=== PATIENT | male | born 1975 | race Hispanic/Latino ===

== ENCOUNTER 2019-04-16 15:14 | Emergency (ER) | payer OTHER, SELFPAY ==
[2019-04-16 16:03] LABS: Absolute Lymphocytes (CBC) 0.9 K/uL (0.7-4.9); Absolute Monocytes 0.3 K/uL (0.1-1.3); Absolute Neutrophil 6.8 K/uL (1.8-8.0); Basophils % 0.3 % (0-1.3); Eosinophils % 0.1 % (0-4.4); Hematocrit 43.7 % (39.6-49.0); Lymphocytes % 11.4 % (15.3-44.8); MPV 8.4 fL (7.6-11.3); Monocytes % 3.2 % (3.3-12.3); Protime INR 1.04; RBC Red Blood Cell Count 4.88 M/uL (4.33-5.43)
[2019-04-16 16:15] LABS: ALT/SGPT 39 U/L (12-78); AST/SGOT 22 U/L (15-37); Albumin 4.5 g/dL (3.4-5.0); Alkaline Phosphatase 75 U/L (45-117); BUN Blood Urea Nitrogen 17 mg/dL (7-18); Bicarbonate 25 mmol/L (21-32); Bilirubin Total 1.2 mg/dL (0.2-1.0); Glucose Level 123 mg/dL (74-106); Protein, Total 8.4 g/dL (6.4-8.2); Sodium Level 139 mmol/L (136-145); Troponin (Emerg Dept Use Only) < 0.02 ng/mL (0.0-0.045)
--- NOTE | 2019-04-16 16:23 | RAD REPORT ---
EXAM DESCRIPTION: CT - Head Brain Wo Cont - 04/16/2019 3:53 pm CLINICAL HISTORY: Headache COMPARISON: None. TECHNIQUE: Computed axial tomography of the head was obtained. IV contrast was not requested. All CT scans are performed using dose optimization technique as appropriate and may include automated exposure control or mA/KV adjustment according to patient size. FINDINGS: An intracranial bleed is not seen . The ventricles are normal in caliber. No extra-axial fluid collection is noted. 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 Infundibulum is distorted Fluid within the sinuses/ mastoids is not seen. 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 MRI pituitary gland recommended.
[2019-04-16] MEDS ORDERED: METOCLOPRAMIDE 10 MG/2mL INJ ONE (16:59)
[2019-04-16] MEDS ORDERED: NA CHLORIDE 0.9% 1,000 ML ONE (16:59)
[2019-04-16 17:05] LABS: Creatine Phosphokinase 196 U/L (39-308)
--- NOTE | 2019-04-16 17:44 | EDPHYS ---
Physician Documentation [facility] Name: Kd Rader Age: 43 yrs Sex: Male : 1975 Arrival Date: 04/16/2019 Time: 15:18 Bed 8 Private MD: ED Physician Nakul Kate HPI: 04/16 15:41 This 43 yrs old Male presents to ER via Ambulatory with complaints of jmm Headache, Vomiting, Numbness Of Hand. 15:41 The patient complains of pain to the forehead. Onset: The symptoms/episode jmm began/occurred this morning, at 09:00. Associated signs and symptoms: Pertinent positives: Photophobia vomiting. This is a 43 year old male with no chronic medical conditions that presents to the ED with complaints of a frontal headache beginning at approx 0900 this morning. Patient states he vomited and developed numbness to his left finger tips. patient denies weakness. Patient states having transient blurred vision during the episodes of vomiting. Patient states his headache has decreased in severity. Patient states the previous day he had worked in high heat for an extended period of time. . Historical: - Allergies: 15:25 No Known Allergies; sg - Home Meds: 15:25 None [Active]; sg - PMHx: 15:25 None; sg - PSHx: 15:25 None; sg - Immunization history:: Adult Immunizations not up to date. - Social history:: Smoking status: Patient/guardian denies using tobacco. - Ebola Screening: : Patient negative for fever greater than or equal to 101.5 degrees Fahrenheit, and additional compatible Ebola Virus Disease symptoms Patient denies exposure to infectious person Patient denies travel to an Ebola-affected area in the 21 days before illness onset No symptoms or risks identified at this time. ROS: 15:41 Constitutional: Negative for fever, chills, and weight loss, Cardiovascular: Negative jmm for chest pain, palpitations, and edema, Respiratory: Negative for shortness of breath, cough, wheezing, and pleuritic chest pain. 15:41 Abdomen/GI: Positive for vomiting. 15:41 Neuro: Positive for headache. 15:41 All other systems are negative. Exam: 15:41 Constitutional: This is a well developed, well nourished patient who is awake, alert, jmm and in no acute distress. Head/Face: atraumatic. Eyes: EOMI, no conjunctival erythema appreciated ENT: Moist Mucus Membranes Neck: Trachea midline, Supple Chest/axilla: Normal chest wall appearance and motion. Cardiovascular: Regular rate and rhythm. No edema appreciated Respiratory: Normal respirations, no respiratory distress appreciated Abdomen/GI: Non distended, soft Skin: General appearance color normal MS/ Extremity: Moves all extremities, no obvious deformities appreciated, no edema noted to the lower extremities 15:41 Neuro: Orientation: is normal, Mentation: is normal, Memory: is normal, Cerebellar function: 15:41 Psych: Behavior/mood is pleasant, cooperative. Vital Signs: 15:24 BP 152 / 99; Pulse 78; Resp 18; Temp 97.6; Pulse Ox 100% on R/A; Pain 10/10; sg 16:14 BP 145 / 99; Pulse 65; Resp 18; Pulse Ox 96% ; sv 17:02 BP 148 / 95; Pulse 66; Resp 16; Pulse Ox 99% ; sv 17:49 BP 146 / 91; Pulse 78; Resp 16; Pulse Ox 99% ; sv NIH Stroke Scale Scores: 16:07 NIHSS Score: 1 sv [place] Coma Score: 15:40 Eye Response: spontaneous(4). Verbal Response: oriented(5). Motor Response: obeys sv commands(6). Total: 15. MDM: 15:41 Patient medically screened. [facility] 17:42 Data reviewed: vital signs, nurses notes. Counseling: I had a detailed discussion with [facility] the patient and/or guardian regarding: the historical points, exam findings, and any diagnostic results supporting the discharge/admit diagnosis, the need for outpatient follow up, to return to the emergency department if symptoms worsen or persist or if there are any questions or concerns that arise at home. 17:42 ED course: CT imaging is negative within 8 hours of onset. Patient headache relieved in [facility] the ED. I do not currently suspect SAH. Patient is afebrile and non toxic in appearance, neck is supple. I do not suspect meningitis. Due to different character of headaches and findings of pituitary mass, patient is advised to follow up with neurology. Family is otherwise given strict return precautions. Patient and family understood and agrees with the plan of care. . 04/16 15:41 Order name: CBC with Diff; Complete Time: 16:08 [facility] 04/16 15:41 Order name: CMP; Complete Time: 17:18 [facility] 04/16 15:41 Order name: Troponin (emerg Dept Use Only); Complete Time: 17:18 [facility] 04/16 15:41 Order name: PT-INR; Complete Time: 16:08 [facility] 04/16 15:47 Order name: Glucose, Ancillary Testing; Complete Time: 15:52 EDMS 04/16 16:49 Order name: Add On-Lab [facility] 04/16 15:41 Order name: CT Head Brain wo Cont; Complete Time: 16:25 [facility] 04/16 15:41 Order name: Saline Lock; Complete Time: 15:55 [facility] 04/16 15:45 Order name: EKG - Nurse/Tech; Complete Time: 16:11 [facility] 04/16 15:55 Order name: EKG; Complete Time: 15:55 sv 04/16 16:53 Order name: Creatine Phosphokinase; Complete Time: 17:18 EDMS Administered Medications: 16:50 Drug: NS 0.9% 1000 ml Route: IV; Rate: 1000 ml; Site: right antecubital; sv 17:50 Follow up: Response: No adverse reaction; IV Status: Completed infusion; IV Intake: sv 1000ml 16:50 Drug: Reglan 10 mg Route: IVP; Site: right antecubital; sv 17:45 Follow up: Response: No adverse reaction; Marked relief of symptoms sv Point of Care Testing: Blood Glucose: 15:44 Blood Glucose: 124 mg/dL; sv Ranges: Critical Glucose Levels:Adult <50 mg/dl or >400 mg/dl <40 mg/dl or >180 mg/dl Disposition: 04/16/19 17:43 Discharged to Home. Impression: Headache. - Condition is Stable. - Discharge Instructions: General Headache Without Cause. - Medication Reconciliation Form, Thank You Letter, Antibiotic Education, Prescription Opioid Use form. - Follow up: Sean Lopez MD; When: 2 - 3 days; Reason: Recheck today's complaints, Continuance of care, Re-evaluation by your physician. NIH Stroke Scale - NIH Stroke Score Date: 04/16/2019 Time: 16:07 Total Score = 1 1a. Level of Consciousness (LOC) - 0(Alert) 1b. Level of Consciousness (LOC) (Year \T\ Age) - 0(Both) 1c. LOC Commands (Open \T\ Closes Eyes/Hand Launderer) - 0(Both) 2. Best Gaze (Lateral Gaze Paresis) - 0(Normal) 3. Visual Field Loss - 0(No visual loss) 4. Facial Palsy - 0(Normal) 5a. Left Arm: Motor (10-second hold) - 0(No drift) 5b. Right Arm: Motor (10-second hold) - 0(No drift) 6a. Left Leg: Motor (5-second hold - always test supine) - 0(No drift) 6b. Right Leg: Motor (5-second hold - always test supine) - 0(No drift) 7. Limb Ataxia (finger/nose \T\ heel/thomas - test with eyes open) - 0(Absent) 8. Sensory Loss (pinprick arms/legs/face) - 1(Mild to moderate loss) 9. Best Language: Aphasia (description/naming/reading) - 0(No aphasia) 10. Dysarthria (speech clarity - read or repeat words) - 0(Normal) 11. Extinction and Inattention (visual/tactile/auditory/spatial/personal) - 0(No abnormality) Initials: sv Signatures: Dispatcher [employer] EDSallie Prater RN RN sv Gay, Steven, RN RN sg Mickail, Joel, PA PA jmm Corrections: (The following items were deleted from the chart) 18:00 17:43 04/16/2019 17:43 Discharged to Home. Impression: Headache. Condition is sv Stable. Forms are Medication Reconciliation Form, Thank You Letter, Antibiotic Education, Prescription Opioid Use. Follow up: Sean Lopez; When: 2 - 3 days; Reason: Recheck today's complaints, Continuance of care, Re-evaluation by your physician. krystina 18:19 15:41 This is a 43 year old male with no chronic medical conditions that krystina presents to the ED with complaints of a frontal headache beginning at approx 0900 this morning. Patient states he vomited and developed numbness to his left finger tips. patient denies weakness. Patient states having transient blurred vision during the episodes of vomiting. Patient states his headache has decreased in severity. . krystina
--- NOTE | 2019-04-16 17:44 | ER ---
Nurse's Notes [facility] Name: Kd Rader Age: 43 yrs Sex: Male : 1975 Arrival Date: 04/16/2019 Time: 15:18 Bed 8 Private MD: Diagnosis: Headache Presentation: 04/16 15:25 Presenting complaint: Patient states: Headache with N/V that started this morning sg around 0800 I think, Reports having right hand numbness that started at 1440 today. Transition of care: patient was not received from another setting of care. Onset of symptoms was April 16, 2019. Risk Assessment: Do you want to hurt yourself or someone else? Patient reports no desire to harm self or others. Initial Sepsis Screen: Does the patient meet any 2 criteria? No. Patient's initial sepsis screen is negative. Does the patient have a suspected source of infection? No. Patient's initial sepsis screen is negative. Care prior to arrival: None. 15:25 Method Of Arrival: Ambulatory sg 15:25 Acuity: EMI 3 sg Triage Assessment: 15:27 General: Appears in no apparent distress. uncomfortable, well groomed, well developed, sg well nourished, Behavior is calm, cooperative, appropriate for age. Neuro: Level of Consciousness is awake, alert, obeys commands, Oriented to person, place, time, situation, Demand Equipment Repairer are equal bilaterally Moves all extremities. Full function Speech is normal, Facial symmetry appears normal, Pupils are PERRLA, Numbness in right hand Reports headache. 15:40 Headache History: The patient has had previous headaches and this one is different than sv previous episodes, and this one is more severe than previous episodes. Historical: - Allergies: 15:25 No Known Allergies; sg - Home Meds: 15:25 None [Active]; sg - PMHx: 15:25 None; sg - PSHx: 15:25 None; sg - Immunization history:: Adult Immunizations not up to date. - Social history:: Smoking status: Patient/guardian denies using tobacco. - Ebola Screening: : Patient negative for fever greater than or equal to 101.5 degrees Fahrenheit, and additional compatible Ebola Virus Disease symptoms Patient denies exposure to infectious person Patient denies travel to an Ebola-affected area in the 21 days before illness onset No symptoms or risks identified at this time. Screenin:40 Abuse screen: Denies threats or abuse. Denies injuries from another. Nutritional sv screening: No deficits noted. Tuberculosis screening: No symptoms or risk factors identified. Fall Risk None identified. 16:07 VAN Screening: Arm Drift: Patient shows no arm weakness. Patient is VAN negative. sv Visual Disturbance: No visual disturbance noted. Aphasia: No aphasia noted. Neglect: No neglect noted. Assessment: 15:40 General: Appears in no apparent distress. uncomfortable, well groomed, well developed, sv Behavior is calm, cooperative, appropriate for age. Pain: Complains of pain in scalp Pain currently is 8 out of 10 on a pain scale. Pain began 0700. Stated he woke up this morning with no headache and then the headache came on suddenly and painful but now the pain has decreased. It started in the frontal area and now is in the occipital area. Is continuous, Also complains of photophobia. Neuro: Level of Consciousness is awake, alert, obeys commands, Oriented to person, place, time, situation, Moves all extremities. Full function Gait is steady, Speech is normal, Facial symmetry appears normal, Reports headache occipital area, numbness in left hand since 0900 but has resolved. photophobia weakness in right foot and left foot. Cardiovascular: Patient's skin is warm and dry. Pulses are 3+ in right brachial artery and left brachial artery. Respiratory: Airway is patent Respiratory effort is even, unlabored, Respiratory pattern is regular, symmetrical. Derm: Skin is pink, warm \T\ dry. Musculoskeletal: Range of motion: intact in all extremities. 16:51 Reassessment: Patient appears in no apparent distress at this time. Patient and/or sv family updated on plan of care and expected duration. Pain level reassessed. Patient is alert, oriented x 3, equal unlabored respirations, skin warm/dry/pink. Neuro: Reports headache occipital area, numbness in left hand fingertips. 17:58 Reassessment: Patient appears in no apparent distress at this time. Patient and/or sv family updated on plan of care and expected duration. Pain level reassessed. Patient is alert, oriented x 3, equal unlabored respirations, skin warm/dry/pink. Patient denies pain at this time. Patient states feeling better. Patient states symptoms have improved. Vital Signs: 15:24 BP 152 / 99; Pulse 78; Resp 18; Temp 97.6; Pulse Ox 100% on R/A; Pain 10/10; sg 16:14 BP 145 / 99; Pulse 65; Resp 18; Pulse Ox 96% ; sv 17:02 BP 148 / 95; Pulse 66; Resp 16; Pulse Ox 99% ; sv 17:49 BP 146 / 91; Pulse 78; Resp 16; Pulse Ox 99% ; sv Vitals: 16:14 Cardiac Rhythm Assessment Sinus rhythm. sv [place] Coma Score: 15:40 Eye Response: spontaneous(4). Verbal Response: oriented(5). Motor Response: obeys sv commands(6). Total: 15. NIH Stroke Scale Scores: 16:07 NIHSS Score: 1 sv ED Course: 15:18 Patient arrived in ED. tw3 15:26 Triage completed. sg 15:27 Subhash Castro PA is PHCP. [facility] 15:27 Nakul Kate MD is Attending Physician. jmm 15:27 Arm band placed on. sg 15:40 Patient has correct armband on for positive identification. Bed in low position. Call sv light in reach. Adult w/ patient. Pulse ox on. NIBP on. Door closed. Head of bed elevated. 15:44 Initial lab(s) drawn, by tx, sent to lab. Inserted saline lock: 20 gauge in right sv antecubital area, using aseptic technique. Blood collected. Flushed right antecubital with 5 ml normal saline. 15:[address] via wheelchair. sv 15:49 Sallie Perry, ZOILA is Primary Nurse. sv 15:53 CT Head Brain wo Cont In Process Unspecified. EDMS 15:53 CT completed. Patient tolerated procedure well. Patient moved to CT. Patient moved back mw3 from CT. 16:09 EKG done, by ED staff, reviewed by Subhash GLASER. sv 16:50 Add On-Lab Sent. sv 16:56 Creatine Phosphokinase Sent. sv 17:43 Sean Lopez MD is Referral Physician. jmm 17:59 No provider procedures requiring assistance completed. IV discontinued, intact, sv bleeding controlled, No redness/swelling at site. Pressure dressing applied. Administered Medications: 16:50 Drug: NS 0.9% 1000 ml Route: IV; Rate: 1000 ml; Site: right antecubital; sv 17:50 Follow up: Response: No adverse reaction; IV Status: Completed infusion; IV Intake: sv 1000ml 16:50 Drug: Reglan 10 mg Route: IVP; Site: right antecubital; sv 17:45 Follow up: Response: No adverse reaction; Marked relief of symptoms sv Point of Care Testing: Blood Glucose: 15:44 Blood Glucose: 124 mg/dL; sv Ranges: Intake: 17:50 IV: 1000ml; Total: 1000ml. sv Outcome: 17:43 Discharge ordered by . krystina 17:59 Discharged to home ambulatory, with family. sv 17:59 Condition: stable 17:59 Discharge instructions given to patient, family, Instructed on discharge instructions, follow up and referral plans. Demonstrated understanding of instructions, follow-up care. 18:00 Patient left the ED. sv NIH Stroke Scale - NIH Stroke Score Date: 04/16/2019 Time: 16:07 Total Score = 1 1a. Level of Consciousness (LOC) - 0(Alert) 1b. Level of Consciousness (LOC) (Year \T\ Age) - 0(Both) 1c. LOC Commands (Open \T\ Closes Eyes/Agricultural Equipment Design Engineer) - 0(Both) 2. Best Gaze (Lateral Gaze Paresis) - 0(Normal) 3. Visual Field Loss - 0(No visual loss) 4. Facial Palsy - 0(Normal) 5a. Left Arm: Motor (10-second hold) - 0(No drift) 5b. Right Arm: Motor (10-second hold) - 0(No drift) 6a. Left Leg: Motor (5-second hold - always test supine) - 0(No drift) 6b. Right Leg: Motor (5-second hold - always test supine) - 0(No drift) 7. Limb Ataxia (finger/nose \T\ heel/thomas - test with eyes open) - 0(Absent) 8. Sensory Loss (pinprick arms/legs/face) - 1(Mild to moderate loss) 9. Best Language: Aphasia (description/naming/reading) - 0(No aphasia) 10. Dysarthria (speech clarity - read or repeat words) - 0(Normal) 11. Extinction and Inattention (visual/tactile/auditory/spatial/personal) - 0(No abnormality) Initials: sv Signatures: Dispatcher [employer] Sallie Kelly RN RN Tony Hernandez RN RN sg Subhash Castro PA PA jmm Wade, Tia 3 Tracy Singh 3
--- NOTE | 2019-04-17 06:20 | EKG ---
Test Date: 2019-04-16 Test Time: 16:00:33 Clinical Reimbursement Specialist: ANNA MEASUREMENT RESULTS: Intervals: Rate: 78 SC: 210 QRSD: 88 QT: 364 QTc: 414 [place]: P: 1 SC: 210 QRS: 7 T: 19 INTERPRETIVE STATEMENTS: Sinus rhythm with sinus arrhythmia with 1st degree AV block Minimal voltage criteria for LVH, may be normal variant Early repolarization Borderline ECG No previous ECG available for comparison Electronically Signed On 04-17-19 06:19:44 CDT by Lino Beavers
== END 2019-04-16 18:00 | disposition home or self-care (01) ==
LOC: ER 15:14
DX: R51 Headache (principal)
CPT/HCPCS: 36415; 70450; 80053; 82550; 82962; 84484; 85025; 85610; 93005; 96361; 96374; 99285; J2765; J7030

== ENCOUNTER 2020-04-02 06:28 | Emergency (ER) | payer SELFPAY ==
[2020-04-02] MEDS ORDERED: NA CHLORIDE 0.9% 1,000 ML ONE (06:55)
[2020-04-02] MEDS ORDERED: FENTANYL CITR 100 MCG/2 ML ONE ×2 (06:55→09:38)
[2020-04-02 07:03] LABS: Absolute Lymphocytes (CBC) 2.2 K/uL (0.7-4.9); Basophils % 0.5 % (0-1.3); Hematocrit 42.5 % (39.6-49.0); Lymphocytes % 34.3 % (15.3-44.8); MPV 8.3 fL (7.6-11.3); RBC Red Blood Cell Count 4.68 M/uL (4.33-5.43)
[2020-04-02 07:19] LABS: Urine RBC 20-50 /HPF (NONE SEEN)
[2020-04-02 07:20] LABS: Urine Bacteria <20 /HPF (NONE SEEN); Urine Culture Reflex Order NOT NEEDED; Urine Mucus 2+ /HPF (NONE SEEN)
[2020-04-02 07:21] LABS: Bilirubin Direct 0.3 mg/dL (0-0.2); Bilirubin Total 1.3 mg/dL (0.2-1.0); Potassium 3.6 mmol/L (3.5-5.1); Protein, Total 7.8 g/dL (6.4-8.2)
--- NOTE | 2020-04-02 08:21 | RAD REPORT ---
EXAM DESCRIPTION: CT - Abdomen Pelvis W Contrast - 04/02/2020 7:57 am CLINICAL HISTORY: Abdominal pain COMPARISON: none. TECHNIQUE: Computed axial tomography of the abdomen pelvis was obtained. 100 cc Isovue-300 was admin istered intravenously. Oral contrast was not requested which limits evaluation of bowel. All CT scans are performed using dose optimization technique as appropriate and may include automated exposure control or mA/KV adjustment according to patient size. FINDINGS: The liver, spleen, pancreas, adrenal and right kidney appear unremarkable. Delay of concentration of contrast the left kidney. Mild to moderate hydronephrosis. 2 millimeter ace culus left UVJ. There is no evidence of diverticulitis. Normal appendix. Small bilateral inguinal hernias. 3.4 centimeter left periaortic lymph node just above the level of the iliac crest. Several additional smaller periaortic lymph nodes in this region. Spondylolysis L5 IMPRESSION: A 2 millimeter calculus left UVJ resulting in mild to moderate left hydronephrosis Left periaortic lymphadenopathy may indicate lymphoma
--- NOTE | 2020-04-02 08:54 | ER ---
Nurse's Notes [facility] Name: Kd Rader Age: 44 yrs Sex: Male : 1975 Arrival Date: 04/02/2020 Time: 06:31 Bed 7 Private MD: Diagnosis: Hydronephrosis with renal and ureteral calculous obstruction Presentation: 04/02 06:51 Chief complaint: Patient states: COMPLAINS OF LLQ PAIN WHICH STARTED YESTERDAY. 4/10 rv PAIN SCALE. TENDERNESS ON THE LLQ WITH COMPLAINS OF NAUSEA AND DIARRHEA. Coronavirus screen: Proceed with normal triage. Ebola Screen: No symptoms or risks identified at this time. Initial Sepsis Screen: Does the patient meet any 2 criteria? No. Patient's initial sepsis screen is negative. Does the patient have a suspected source of infection? No. Patient's initial sepsis screen is negative. Risk Assessment: Do you want to hurt yourself or someone else? Patient reports no desire to harm self or others. Onset of symptoms was April 01, 2020 at 08:00. 06:51 Method Of Arrival: Ambulatory 06:51 Acuity: EMI 3 rv Triage Assessment: 06:53 General: Appears comfortable, Behavior is calm, cooperative. Pain: Complains of pain in rv left lower quadrant Pain currently is 4 out of 10 on a pain scale. EENT: No signs and/or symptoms were reported regarding the EENT system. Neuro: Level of Consciousness is awake, alert, obeys commands, Oriented to person, place, time, situation. Cardiovascular: Patient's skin is warm and dry. Respiratory: Airway is patent. GI: Abdomen is round non-distended, Bowel sounds present X 4 quads. Abd is soft Abdomen is tender to palpation in left lower quadrant Reports lower abdominal pain, diarrhea, nausea. Derm: Skin is intact. Historical: - Allergies: 06:55 No Known Allergies; rv - Home Meds: 06:55 None [Active]; rv - PMHx: 06:55 None; rv - PSHx: 06:55 None; rv - Immunization history:: Adult Immunizations up to date. - Social history:: Smoking status: Patient denies any tobacco usage or history of. Screenin:54 Abuse screen: Denies threats or abuse. Denies injuries from another. Nutritional rv screening: No deficits noted. Tuberculosis screening: No symptoms or risk factors identified. Fall Risk None identified. Assessment: 08:22 Reassessment: Patient appears in no apparent distress at this time. Patient and/or em family updated on plan of care and expected duration. Pain level reassessed. Patient is alert, oriented x 3, equal unlabored respirations, skin warm/dry/pink. Patient states feeling better. Vital Signs: 06:51 BP 132 / 101; Pulse 82; Resp 19; Temp 98.4; Pulse Ox 100% on R/A; Weight 84.82 kg; rv Height 5 ft. 2 in. (157.48 cm); Pain 4/10; 07:15 BP 161 / 99; Pulse 70; Resp 16; Pulse Ox 100% ; sv 08:20 BP 147 / 96; Pulse 69; Resp 16; Pulse Ox 96% on R/A; em 06:51 Body Mass Index 34.20 (84.82 kg, 157.48 cm) rv ED Course: 06:31 Patient arrived in ED. ds1 06:32 Amelia Humphries FNP-C [facility]. snw 06:32 Domingo Fu MD is Attending Physician. snw 06:51 Initial lab(s) drawn, by me, sent to lab. Inserted saline lock: 18 gauge in right rv antecubital area, using aseptic technique. Blood collected. 06:52 Triage completed. rv 06:53 Randall Saini, RN is Primary Nurse. mg2 06:53 Arm band placed on Patient placed in the treatment room, on a stretcher, Patient rv notified of wait time. 06:54 Patient has correct armband on for positive identification. Placed in gown. Bed in low rv position. Call light in reach. Side rails up X 1. Pulse ox on. NIBP on. 07:19 Pacheco Murcia, RN is Primary Nurse. em 07:58 CT Abd/Pelvis - PO and IV Contrast In Process Unspecified. EDMS 09:41 No provider procedures requiring assistance completed. IV discontinued, intact, em bleeding controlled, No redness/swelling at site. Pressure dressing applied. Administered Medications: 06:53 Drug: NS 0.9% 1000 ml Route: IV; Rate: 1 bolus; Site: right antecubital; mg2 09:18 Follow up: IV Status: Completed infusion; IV Intake: 1000ml em 06:53 Drug: fentaNYL (PF) 25 mcg Route: IVP; Site: right antecubital; mg2 08:30 Follow up: Response: No adverse reaction; Marked relief of symptoms; Pain is decreased; em RASS: Alert and Calm (0) 09:36 Drug: Cipro 500 mg Route: PO; em 09:41 Follow up: Response: Medication administered at discharge. em 09:36 Drug: Flomax 0.4 mg Route: PO; em 09:42 Follow up: Response: Medication administered at discharge. em 09:36 Drug: fentaNYL (PF) 25 mcg Route: IVP; Site: right antecubital; em 09:42 Follow up: Response: Medication administered at discharge. em Intake: 09:18 IV: 1000ml; Total: 1000ml. em Outcome: 08:54 Discharge ordered by . snw 09:41 Discharged to home ambulatory. em 09:41 Condition: good 09:41 Discharge instructions given to patient, Instructed on discharge instructions, follow up and referral plans. medication usage, Demonstrated understanding of instructions, follow-up care, medications, Prescriptions given X 4. 09:42 Patient left the ED. em Signatures: Dispatcher [employer] EDSallie Prater RN RN Amelia Humphries, DRUM CLEANER-C DRUM CLEANER-Csnw Pacheco Murcia RN RN em Kristen Amaya ds1 Randall Saini RN RN mg2 Darius Moncada RN RN rv
--- NOTE | 2020-04-02 08:55 | EDPHYS ---
Physician Documentation [facility] Name: Kd Rader Age: 44 yrs Sex: Male : 1975 Arrival Date: 04/02/2020 Time: 06:31 Bed 7 Private MD: ED Physician Domingo Fu HPI: 04/02 06:46 This 44 yrs old Male presents to ER via Unassigned with complaints of snw Abdominal Pain. 06:46 The patient presents with abdominal pain in the left lower quadrant. Onset: The snw symptoms/episode began/occurred gradually, 2 day(s) ago, and became worse and became persistent. The symptoms do not radiate. Associated signs and symptoms: Pertinent positives: nausea, Pertinent negatives: blood in stools, chest pain, constipation, diarrhea, fever, testicular pain. The symptoms are described as crampy, steady. Severity of pain: At its worst the pain was moderate severe. The patient has not experienced similar symptoms in the past. The patient has not recently seen a physician. Historical: - Allergies: 06:55 No Known Allergies; rv - Home Meds: 06:55 None [Active]; rv - PMHx: 06:55 None; rv - PSHx: 06:55 None; rv - Immunization history:: Adult Immunizations up to date. - Social history:: Smoking status: Patient denies any tobacco usage or history of. ROS: 06:45 Constitutional: Negative for fever, chills, and weight loss, Eyes: Negative for injury, snw pain, redness, and discharge, ENT: Negative for injury, pain, and discharge, Neck: Negative for injury, pain, and swelling, Cardiovascular: Negative for chest pain, palpitations, and edema, Respiratory: Negative for shortness of breath, cough, wheezing, and pleuritic chest pain, Back: Negative for injury and pain, : Negative for injury, bleeding, discharge, and swelling, MS/Extremity: Negative for injury and deformity, Skin: Negative for injury, rash, and discoloration, Neuro: Negative for headache, weakness, numbness, tingling, and seizure, Psych: Negative for depression, anxiety, suicide ideation, homicidal ideation, and hallucinations. 06:45 Abdomen/GI: Positive for abdominal pain, nausea, of the left lower quadrant, Negative for vomiting, fever. Exam: 06:45 Constitutional: This is a well developed, well nourished patient who is awake, alert, snw and in no acute distress. Head/Face: Normocephalic, atraumatic. Eyes: Pupils equal round and reactive to light, extra-ocular motions intact. Lids and lashes normal. Conjunctiva and sclera are non-icteric and not injected. Cornea within normal limits. Periorbital areas with no swelling, redness, or edema. ENT: Nares patent. No nasal discharge, no septal abnormalities noted. Tympanic membranes are normal and external auditory canals are clear. Oropharynx with no redness, swelling, or masses, exudates, or evidence of obstruction, uvula midline. Mucous membranes moist. Neck: Trachea midline, no thyromegaly or masses palpated, and no cervical lymphadenopathy. Supple, full range of motion without nuchal rigidity, or vertebral point tenderness. No Meningismus. Chest/axilla: Normal chest wall appearance and motion. Nontender with no deformity. No lesions are appreciated. Cardiovascular: Regular rate and rhythm with a normal S1 and S2. No gallops, murmurs, or rubs. Normal PMI, no JVD. No pulse deficits. Respiratory: Lungs have equal breath sounds bilaterally, clear to auscultation and percussion. No rales, rhonchi or wheezes noted. No increased work of breathing, no retractions or nasal flaring. Back: No spinal tenderness. No costovertebral tenderness. Full range of motion. Skin: Warm, dry with normal turgor. Normal color with no rashes, no lesions, and no evidence of cellulitis. MS/ Extremity: Pulses equal, no cyanosis. Neurovascular intact. Full, normal range of motion. Neuro: Awake and alert, GCS 15, oriented to person, place, time, and situation. Cranial nerves II-XII grossly intact. Motor strength 5/5 in all extremities. Sensory grossly intact. Cerebellar exam normal. Normal gait. Psych: Awake, alert, with orientation to person, place and time. Behavior, mood, and affect are within normal limits. 06:45 Abdomen/GI: Inspection: abdomen appears normal, Bowel sounds: normal, Palpation: moderate abdominal tenderness, in the left lower quadrant. Vital Signs: 06:51 BP 132 / 101; Pulse 82; Resp 19; Temp 98.4; Pulse Ox 100% on R/A; Weight 84.82 kg; rv Height 5 ft. 2 in. (157.48 cm); Pain 4/10; 07:15 BP 161 / 99; Pulse 70; Resp 16; Pulse Ox 100% ; sv 08:20 BP 147 / 96; Pulse 69; Resp 16; Pulse Ox 96% on R/A; em 06:51 Body Mass Index 34.20 (84.82 kg, 157.48 cm) rv MDM: 06:33 Patient medically screened. snw 08:55 Data reviewed: vital signs, nurses notes. Data interpreted: Pulse oximetry: on room air snw is 96 %. Interpretation: acceptable. Counseling: I had a detailed discussion with the patient and/or guardian regarding: the historical points, exam findings, and any diagnostic results supporting the discharge/admit diagnosis, the presence of at least one elevated blood pressure reading (>120/80) during this emergency department visit, lab results, radiology results, the need for outpatient follow up. Special discussion: Based on the patient's Hx, exam, and Dx evaluation, there is no indication for emergent surgery or inpatient Tx. It is understood by the patient/guardian that if the Sx's persist or worsen they need to return immediately for re-evaluation. I have referred the patient to see his PCP for further evaluation of high blood pressure. I discussed with the patient the need to follow-up with the PCP/specialist for the noted incidental finding on X-ray/CT scanning. Based on the history and exam findings, there is no indication for further emergent testing or inpatient evaluation. I discussed with the patient/guardian the need to see the see supervisor/oncologist for further evaluation of the symptoms. I discussed with the patient/guardian the need to see the primary care provider for further evaluation of the symptoms. Pt notified of radiology report and need for f/u to rule out lymphoma. Discussed with pt that this is not the diagnosis from the ED but will provide follow up providers and will give discharge info re: lymphoma. 04/02 06:45 Order name: Basic Metabolic Panel; Complete Time: 07:31 snw 04/02 06:45 Order name: CBC with Diff; Complete Time: 07:31 snw 04/02 06:45 Order name: Creatinine for Radiology; Complete Time: 07:31 snw 04/02 06:45 Order name: Hepatic Function; Complete Time: 07:31 snw 04/02 06:45 Order name: Lipase; Complete Time: 07:31 snw 04/02 06:45 Order name: Urine Microscopic Only; Complete Time: 07:31 snw 04/02 06:45 Order name: CT Abd/Pelvis - PO and IV Contrast; Complete Time: 08:31 snw 04/02 06:47 Order name: Urine Dipstick--Ancillary (enter results) ks 04/02 06:48 Order name: Urine Dipstick-Ancillary EDNV 04/02 06:45 Order name: IV Saline Lock; Complete Time: 06:54 snw 04/02 06:45 Order name: Labs collected and sent; Complete Time: 06:54 snw 04/02 06:45 Order name: Urine Dipstick-Ancillary (obtain specimen); Complete Time: 06:54 snw Administered Medications: 06:53 Drug: NS 0.9% 1000 ml Route: IV; Rate: 1 bolus; Site: right antecubital; mg2 09:18 Follow up: IV Status: Completed infusion; IV Intake: 1000ml em 06:53 Drug: fentaNYL (PF) 25 mcg Route: IVP; Site: right antecubital; mg2 08:30 Follow up: Response: No adverse reaction; Marked relief of symptoms; Pain is decreased; em RASS: Alert and Calm (0) 09:36 Drug: Cipro 500 mg Route: PO; em 09:41 Follow up: Response: Medication administered at discharge. em 09:36 Drug: Flomax 0.4 mg Route: PO; em 09:42 Follow up: Response: Medication administered at discharge. em 09:36 Drug: fentaNYL (PF) 25 mcg Route: IVP; Site: right antecubital; em 09:42 Follow up: Response: Medication administered at discharge. em Disposition: 04/03 06:40 Co-signature as Attending Physician, Domingo Fu MD I agree with the assessment and tw4 plan of care. Disposition: 04/02/20 08:54 Discharged to Home. Impression: Hydronephrosis with renal and ureteral calculous obstruction. - Condition is Stable. - Discharge Instructions: Kidney Stones, Hydronephrosis, Hodgkin Lymphoma, Adult, Non-Hodgkin Lymphoma, Adult, Rehydration, Adult. - Prescriptions for Flomax 0.4 mg Oral Capsule, Sust. Release 24 hr - take 1 capsule by ORAL route once daily 1/2 hour following the same meal each day; 30 capsule. Cipro 500 mg Oral Tablet - take 1 tablet by ORAL route every 12 hours for 7 days; 14 tablet. Diclofenac Sodium 75 mg Oral Tablet Sustained Release - take 1 tablet by ORAL route 2 times per day; 30 tablet. promethazine 25 mg Oral Tablet - take 1 tablet by ORAL route every 6 hours As needed; 20 tablet. - Medication Reconciliation Form, Thank You Letter, Antibiotic Education, Prescription Opioid Use form. - Follow up: Emergency Department; When: As needed; Reason: Worsening of condition. Follow up: Private Physician; When: 2 - 3 days; Reason: Recheck today's complaints, Continuance of care, Re-evaluation by your physician. Signatures: Dispatcher [employer] EDMS Amelia Humphries, [employer] SENIOR SALES COMPENSATION ANALYST-Pacheco Pepe, ZOILA RN Domingo Mcdonough MD MD tw4 Randall Saini RN RN [facility] [place] Darius Moncada RN RN rv Corrections: (The following items were deleted from the chart) 04/02 09:42 08:54 04/02/2020 08:54 Discharged to Home. Impression: Hydronephrosis with renal and em ureteral calculous obstruction. Condition is Stable. Forms are Medication Reconciliation Form, Thank You Letter, Antibiotic Education, Prescription Opioid Use. Follow up: Emergency Department; When: As needed; Reason: Worsening of condition. Follow up: Private Physician; When: 2 - 3 days; Reason: Recheck today's complaints, Continuance of care, Re-evaluation by your physician. snw
[2020-04-02] MEDS ORDERED: CIPROFLOXACIN HCL 500 MG TAB ONE (09:37)
[2020-04-02] MEDS ORDERED: TAMSULOSIN 0.4 MG SR CAP ONE (09:38)
[2020-04-02 10:22] VITALS: BP 161/99; O2SAT 100
[2020-04-02 10:41] LABS: Urine Blood 3+ (NEG); Urine Glucose NEGATIVE (NEG); Urine Protein 1+ (NEG); Urine Specific Gravity >1.030 (1.005-1.030)
== END 2020-04-02 09:42 | disposition home or self-care (01) ==
LOC: ER 06:28
DX: N13.2 Hydronephrosis with renal and ureteral calculous obstruction (principal)
CPT/HCPCS: 36415; 74177; 80048; 80076; 81003; 81015; 83690; 85025; 96361; 96374; 99284; J3010; J7030; Q9967